=== PATIENT | female | born 1995 | race African-American/Black ===

== ENCOUNTER 2018-09-06 03:12 | Inpatient (IN) | payer MEDICAID ==
[~2018-09-06] VITALS: Ht 157.5 cm; Wt 79.4 kg
[2018-09-06] MEDS ORDERED: DEXT 5%/LR + PITOCIN 20UNITS/L 1,000 ML IV SCH ×2 (03:29→17:08)
[2018-09-06] MEDS ORDERED: LACTATED RINGERS 1,000 ML IV SCH (03:29)
[2018-09-06] MEDS ORDERED: LIDOCAINE HCL 1% 20ML VIAL (Pyxis) INJ INFIL SCH (03:30)
[2018-09-06] MEDS ORDERED: NALOXONE HCL 0.4 MG/ML 1ML VIAL IM PRN (03:30)
[2018-09-06 04:19] LABS: BASOPHILS % 0.3 % (0.0-2.0); EOSINOPHILS % 0.5 % (0.0-5.0); HEMATOCRIT. 37.7 % (36.0-48.0); HEMOGLOBIN. 12.8 g/dL (12.0-16.0); LYMPHOCYTES % 26.5 % (20.0-50.0); MEAN CORPUSCULAR HEMOGLOBIN 31.5 pg (28.0-32.0); MEAN CORPUSCULAR VOLUME 92.7 fL (81.0-99.0); MEAN PLATELET VOLUME 10.8 fl (7.4-10.4); MONOCYTES % 7.9 % (2.0-8.0); NEUTROPHILS % 64.8 % (40.0-76.0); PLATELET 277 x1000/uL (130-400); RED BLOOD CELL COUNT 4.07 mill/uL (4.2-5.4); RED CELL DISTRIBUTION WIDTH 13.5 % (11.6-14.6)
[2018-09-06 04:22] LABS: INR 0.9; PARTIAL THROMBOPLASTIN TIME 29.5 sec (23.4-31.0); PROTHROMBIN TIME 9.4 sec (9.1-11.1)
[2018-09-06] MEDS: BUTORPHANOL TARTRATE 2 MG/ML VIAL IV PRN ×2 (04:30→16:48)
[2018-09-06] MEDS ORDERED: PENICILLIN G POTASSIUM 5 MMU in DEXT 5% WATER 100 ML IV SCH (04:30)
[2018-09-06] MEDS ORDERED: BUPIVACAINE HCL/NS/PF EPIDURAL 100 ML EP ONE (05:02)
[2018-09-06] MEDS ORDERED: BUPIVACAINE HCL/PF 0.25% (2.5MG/ML) 10ML ONE ×2 (05:02→16:21)
[2018-09-06] MEDS ORDERED: FENTANYL CITRATE/PF 50MCG/ML 2ML VIAL ONE (05:02)
[2018-09-06 05:15] LABS: HEPATITIS B SURFACE ANTIGEN NEGATIVE
[2018-09-06] MEDS ORDERED: BUPIVACAINE HCL/NS/PF EPIDURAL 100 ML EP SCH (06:00)
[2018-09-06 08:51] LABS: CLARITY URINE CLEAR (CLEAR); COLOR URINE YELLOW (YELLOW); KETONES URINE NEGATIVE (NEGATIVE); LEUKOCYTE ESTERASE URINE NEGATIVE (NEGATIVE); NITRITE URINE NEGATIVE (NEGATIVE); OCCULT BLOOD URINE 3+ (NEGATIVE); PH URINE 6.5 (4.5-8.0); PROTEIN URINE NEGATIVE (NEGATIVE); SPECIFIC GRAVITY URINE 1.008 (1.005-1.030); UROBILINOGEN URINE 0.2 E.U./dL (0.2-1.0)
[2018-09-06] MEDS ORDERED: PENICILLIN G POTASSIUM 2.5 MMU in DEXTROSE 5% WATER 50 ML IV SCH (09:00)
[2018-09-06 09:33] LABS: *AMPHETAMINES SCREEN URINE NEGATIVE (NEGATIVE); *BARBITURATES SCREEN URINE NEGATIVE (NEGATIVE); *BENZODIAZEPINES SCREEN URINE NEGATIVE (NEGATIVE)
[2018-09-06 09:34] LABS: *COCAINE SCREEN URINE NEGATIVE (NEGATIVE); CANNABINOID URINE SCREEN NEGATIVE (NEGATIVE); METHADONE URINE SCREEN NEGATIVE (NEGATIVE); OPIATES URINE SCREEN NEGATIVE (NEGATIVE); PHENCYCLIDINE URINE SCREEN NEGATIVE (NEGATIVE)
[2018-09-06] MEDS ORDERED: TERBUTALINE SULFATE 1MG/ML VIAL SUBCUT PRN (11:45)
[2018-09-06] MEDS ORDERED: TERBUTALINE SULFATE 1MG/ML VIAL ONE (11:51)
[2018-09-06] MEDS ORDERED: BUPIVACAINE HCL/PF 0.5% (5MG/ML) 10ML ONE (16:20)
[2018-09-06] MEDS ORDERED: INFLUENZA VIRUS VACCINE(AFLURIA) 0.5ML SYR IM ONE (17:15)
[2018-09-06] MEDS ORDERED: DIPHENHYDRAMINE 25MG CAPSULE PO PRN (17:15)
[2018-09-06] MEDS ORDERED: IBUPROFEN 400MG TABLET PO PRN (17:15)
[2018-09-06] MEDS ORDERED: HEMORRHOIDAL SUPP PR PRN (17:15)
[2018-09-06] MEDS ORDERED: TETANUS, DIPHTHERIA, PERTUSSIS VAC/PF 0.5ML (>7YR OLD) IM ONE (17:15)
[2018-09-06] MEDS ORDERED: BISACODYL 10MG SUPP PR PRN (17:15)
[2018-09-06] MEDS ORDERED: ACETAMINOPHEN WITH CODEINE 300/30MG TABLET PO PRN (17:15)
[2018-09-06] MEDS ORDERED: GLYCERIN/WITCH HAZEL LEAF MEDICATED PAD TOP PRN (17:15)
[2018-09-06] MEDS ORDERED: LANOLIN OINT 0.25 GM TUBE TOP PRN (17:30)
[2018-09-06] MEDS ORDERED: BENZOCAINE/LANOLIN/ALOE VERA SPRAY TOP PRN (18:00)
[2018-09-06 18:30] VITALS: BP 125/72
[2018-09-06 19:00] VITALS: BP 117/74
[2018-09-06] MEDS: IBUPROFEN 800MG TABLET PO PRN (19:20)
[2018-09-06 19:50] VITALS: BP 132/82
[2018-09-06] MEDS: DOCUSATE SODIUM 100MG CAPSULE PO SCH (21:24)
[2018-09-07] MEDS: IBUPROFEN 800MG TABLET PO PRN ×2 (04:23→20:35)
[2018-09-07 05:15] VITALS: BP 113/56
[2018-09-07 08:00] VITALS: BP 102/60
[2018-09-07 08:15] LABS: BASOPHILS % 0.1 % (0.0-2.0); EOSINOPHILS % 0.1 % (0.0-5.0); HEMATOCRIT. 25.5 % (36.0-48.0); HEMOGLOBIN. 8.9 g/dL (12.0-16.0); LYMPHOCYTES % 14.6 % (20.0-50.0); MEAN CORPUSCULAR HEMOGLOBIN 32.3 pg (28.0-32.0); MEAN CORPUSCULAR VOLUME 92.5 fL (81.0-99.0); MEAN PLATELET VOLUME 10.1 fl (7.4-10.4); MONOCYTES % 10.3 % (2.0-8.0); NEUTROPHILS % 74.9 % (40.0-76.0); PLATELET 161 x1000/uL (130-400); RED BLOOD CELL COUNT 2.75 mill/uL (4.2-5.4); RED CELL DISTRIBUTION WIDTH 13.4 % (11.6-14.6)
[2018-09-07] MEDS: PRENATAL VIT/FE FUMARATE/FA TABLET PO SCH (08:46)
[2018-09-07] MEDS: FERROUS SULFATE 325MG TABLET PO SCH ×2 (12:35→17:00)
[2018-09-07 16:00] VITALS: BP 119/72
[2018-09-07 20:00] VITALS: BP 109/71
[2018-09-07] MEDS: DOCUSATE SODIUM 100MG CAPSULE PO SCH (20:34)
[2018-09-08 04:00] VITALS: BP 115/65
[2018-09-08 08:00] VITALS: BP 116/74
[2018-09-08] MEDS: PRENATAL VIT/FE FUMARATE/FA TABLET PO SCH (08:30)
[2018-09-08] MEDS: FERROUS SULFATE 325MG TABLET PO SCH (08:30)
[2018-09-08] MEDS: IBUPROFEN 800MG TABLET PO PRN (08:30)
== END 2018-09-08 13:40 | disposition home or self-care (01) | DRG 560 ==
LOC: OBSVTOIN 03:12 → L&D 03:12 → 7EST PP/OB 17:56
PROVIDERS: ADMIT Specialist; ATTEND Specialist
PROC: 0W8NXZZ Division of Female Perineum, External Approach (ICD-10-PCS; 2018-09-06)
PROC: 3E0R3BZ Introduction of Anesthetic Agent into Spinal Canal, Percutaneous Approach (ICD-10-PCS; 2018-09-06)
PROC: 00HU33Z Insertion of Infusion Device into Spinal Canal, Percutaneous Approach (ICD-10-PCS; 2018-09-06)
PROC: 10D07Z6 Extraction of Products of Conception, Vacuum, Via Natural or Artificial Opening (ICD-10-PCS; principal; 2018-09-06 16:39)
DX: O98.52 Other viral diseases complicating childbirth (principal); O99.344 Other mental disorders complicating childbirth; B00.9 Herpesviral infection, unspecified; Z37.0 Single live birth; Z3A.40 40 weeks gestation of pregnancy; F32.9 Major depressive disorder, single episode, unspecified; R87.612 Low grade squamous intraepithelial lesion on cytologic smear of cervix (LGSIL); O75.89 Other specified complications of labor and delivery
CPT/HCPCS: 36415; 76815; 80305; 86592; 86703; 86762; 86850; 86900; 87340; 99281; J0595; J2540; J2590; J3010; J3105; J3490; J7060; J7120; A4315